=== PATIENT | female | born 1940 | race Two or more races ===

== ENCOUNTER 2024-07-03 09:09 | Emergency (ER) | payer OTHER ==
[~2024-07-03] VITALS: Ht 157.5 cm; Wt 66.2 kg
[~2024-07-03 09:09] MED LIST: AMARYL; AVALIDE 300-251 TAB; LEVSIN/SL0.125 MG PO; METFORMIN HCL500 MG; NABUMETONE750 MG PO; ORPH100T PO; PLAVIX 75MG PO; TAMS0.4C PO; TRAMADOL HCL50 MG PO
[2024-07-03] MEDS ORDERED: AMLODIPINE-OLM1 EAC2 PO (09:55)
[2024-07-03] MEDS ORDERED: PLAVIX75 MG PO (09:56)
[2024-07-03] MEDS ORDERED: EZETIMIBE10 MG PO (09:56)
[2024-07-03] MEDS ORDERED: HORIZANT300 MG PO (09:56)
[2024-07-03 13:27] LABS: HEMATOCRIT 36.9 % (36.0-45.00); HEMOGLOBIN 12.2 g/dL (12.0-15.00); MEAN CELL VOLUME 91.2 fL (80.00-100.00); MEAN CORPUSCULAR HEMOGLOBIN 30.3 pg (27.00-32.0); MEAN CORPUSCULAR HGB CONC 33.2 g/dl (32.0-36.0); PLATELET COUNT 254 K/uL (150-450); RED BLOOD COUNT 4.04 M/uL (4.00-6.00); RED CELL DISTRIBUTION WIDTH 13.9 % (11.5-14.5)
[2024-07-03 13:56] LABS: ALBUMIN 4.3 gm/dL (3.4-5.0); BILIRUBIN TOTAL 0.46 mg/dL (0.3-1.2); CREATININE SERUM 1.55 mg/dL (0.55-1.02); GFR 31.78; GLOBULINA 4.1 G/DL (2.4-3.5); POTASSIUM 4.07 mEq/L (3.5-5.1); TOTAL PROTEIN 8.4 gm/dL (6.4-8.2)
[2024-07-03 14:07] LABS: PARTIAL THROMBOPLASTIN TIME 25.1 SECONDS (22.0-34.0); PROTHROMBIN TIME 10.9 SECONDS (9.0-11.5)
[2024-07-03] MEDS ORDERED: 0.9 % SODIUM CHLORIDE 500 ML IV ONE (14:30)
[2024-07-03 14:36] LABS: URINE APPEARANCE Cloudy; URINE BILIRRUBIN Negative (NEGATIVE); URINE BLOOD Negative; URINE COLOR Yellow; URINE GLUCOSE Negative (NEGATIVE); URINE KETONE Negative (NEGATIVE); URINE LEUKOCYTE Moderate; URINE NITRATE Negative; URINE PROTEIN 30 (NEGATIVE); URINE UROBILINOGEN 0.2 E.U./dl
[2024-07-03 14:47] LABS: URINE CAST 1.61 uL (0.0-1.40); URINE EPITHELIAL CELLS 95.4 uL (0.0-38.8)
[2024-07-03 15:04] LABS: URINE RBC 0.8 uL (0.0-20.8)
== END 2024-07-03 15:07 | disposition home or self-care (01) ==
LOC: ER 09:12
PROVIDERS: General Practice
DX: R53.81 Other malaise (principal); R53.1 Weakness; E11.9 Type 2 diabetes mellitus without complications; Z79.84 Long term (current) use of oral hypoglycemic drugs